=== PATIENT | male | born 1940 | race American Indian/Alaskan Native ===

== ENCOUNTER 2019-01-16 21:36 | Inpatient (IN) | payer MEDICARE ==
--- NOTE | 2019-01-16 21:59 | Emergency Department Report ---
Chief Complaint: Weakness Stated Complaint: DEMENTIA/LOWER BODY WEAKNESS Time Seen by Provider: 01/16/19 21:53 - HPI History of Present Illness: hx of dementia seems more AMS that began three days ago states he has bilateral LE weakness states he missed his chair and fell onto his buttocks today PMHx of glaucoma pt is currently taking lisinopril, hydralazine, and memantine repeat manual in triage BP 146/72 - Exam Vital Signs: Vital Signs 01/16/19 21:49 Temperature 98.1 F Pulse Rate 97 H Respiratory 18 Rate Blood Pressure 147/103 O2 Sat by Pulse 100 Oximetry MSE screening note: Focused history and physical exam performed. Due to findings the following was ordered: labs, UA
[2019-01-16 22:34] LABS: Basophils % (Auto) 0.7 % (0.0-1.8); Eosinophils # (Auto) 0.1 K/mm3 (0.0-0.4); Eosinophils % (Auto) 1.8 % (0.0-4.3); Hematocrit 43.4 % (35.5-45.6); Hemoglobin 14.5 gm/dl (11.8-15.2); Lymphocytes # (Auto) 0.8 K/mm3 (1.2-5.4); Lymphocytes % (Auto) 21.7 % (13.4-35.0); Mean Corpuscular HGB Conc 33 % (32-34); Mean Corpuscular Volume 89 fl (84-94); Monocytes # (Auto) 0.5 K/mm3 (0.0-0.8); Monocytes % (Auto) 12.6 % (0.0-7.3); Platelet Count 180 K/mm3 (140-440); Red Blood Count 4.88 M/mm3 (3.65-5.03); Red Cell Distribution Width 13.1 % (13.2-15.2)
[2019-01-16 22:44] LABS: INR 1.05 (0.87-1.13); Partial Thromboplastin Time 25.5 Sec. (24.2-36.6)
--- NOTE | 2019-01-16 22:50 | Emergency Department Report ---
- General Chief complaint: Weakness Stated complaint: DEMENTIA/LOWER BODY WEAKNESS Time Seen by Provider: 01/16/19 21:53 Source: family Mode of arrival: Ambulatory Limitations: No Limitations - History of Present Illness Initial comments: 78-year-old male with history of Alzheimer's dementia presents to ED with generalized weakness and altered mental status. states over the last week patient has been generally weak, even falling and missing the chair, landing on his buttocks, denies head injury. Also states the patient has had decreased appetite, has been conversing less, and has been slightly more agitated. states patient has not complained of anything. denies fever, vomiting, diarrhea. MD Complaint: generalized weakness -: week(s) (1) Location: LLE, RLE Severity: moderate Consistency: constant Improves with: none Worsens with: none Associated Symptoms: loss of appetite. denies: fever/chills, shortness of breath - Related Data Home Medications Medication Instructions Recorded Confirmed Last Taken Aspirin [Aspirin BABY CHEW TAB] 81 mg PO QDAY 09/01/13 01/17/19 10/17/15 Trospium Chloride [Trospium 20 mg PO QDAY 10/17/15 01/17/19 10/17/15 Chloride ER] Latanoprost [Xalatan] 1 drop OP HS 01/17/19 01/17/19 Unknown Previous Rx's Medication Instructions Recorded Last Taken Type AtorvaSTATin [Lipitor] 40 mg PO QHS #30 tablet 11/21/17 Unknown Rx Lisinopril [Zestril TAB] 10 mg PO QDAY #30 tablet 11/21/17 Unknown Rx Memantine HCl [Namenda Xr] 14 mg PO DAILY #30 cap.spr.24 11/21/17 Unknown Rx hydrALAZINE [Apresoline TAB] 25 mg PO Q8HR #90 tablet 11/21/17 Unknown Rx Allergies Allergy/AdvReac Type Severity Reaction Status Date / Time No Known Allergies Allergy Unverified 09/01/13 11:07 ED Review of Systems ROS: Stated complaint: DEMENTIA/LOWER BODY WEAKNESS Other details as noted in HPI Comment: Unobtainable due to pts medical conditions (hx of dementia) Constitutional: denies: fever Gastrointestinal: denies: vomiting, diarrhea ED Past Medical Hx - Past Medical History Previous Medical History?: Yes Hx Hypertension: Yes Hx Heart Attack/AMI: No Hx Congestive Heart Failure: No Hx Diabetes: Yes Hx Seizures: No Hx Asthma: No Hx COPD: No Hx Tuberculosis: No Hx Dementia: Yes Hx HIV: No Additional medical history: heart murmur, memory loss/difficulty - Surgical History Past Surgical History?: Yes Additional Surgical History: hand surgery, enlarged prostate with urinary incontinence - Social History Smoking Status: Never Smoker Substance Use Type: None - Medications Home Medications: Home Medications Medication Instructions Recorded Confirmed Last Taken Type Aspirin [Aspirin BABY CHEW TAB] 81 mg PO QDAY 09/01/13 01/17/19 10/17/15 History Trospium Chloride [Trospium 20 mg PO QDAY 10/17/15 01/17/19 10/17/15 History Chloride ER] AtorvaSTATin [Lipitor] 40 mg PO QHS #30 tablet 11/21/17 01/17/19 Unknown Rx Lisinopril [Zestril TAB] 10 mg PO QDAY #30 tablet 11/21/17 01/17/19 Unknown Rx Memantine HCl [Namenda Xr] 14 mg PO DAILY #30 cap.spr.24 11/21/17 01/17/19 Unknown Rx hydrALAZINE [Apresoline TAB] 25 mg PO Q8HR #90 tablet 11/21/17 01/17/19 Unknown Rx Latanoprost [Xalatan] 1 drop OP HS 01/17/19 01/17/19 Unknown History ED Physical Exam - General Limitations: No Limitations General appearance: alert, in no apparent distress - Head Head exam: Present: atraumatic, normocephalic - Eye Eye exam: Present: normal appearance, PERRL, EOMI - ENT ENT exam: Present: mucous membranes moist - Neck Neck exam: Present: normal inspection - Respiratory Respiratory exam: Present: normal lung sounds bilaterally. Absent: respiratory distress - Cardiovascular Cardiovascular Exam: Present: regular rate, normal rhythm - GI/Abdominal GI/Abdominal exam: Present: soft. Absent: distended, tenderness - Extremities Exam Extremities exam: Present: normal inspection - Neurological Exam Neurological exam: Present: alert, altered (pt does not answer any questions, only smiles politely and says "Huh?"), CN II-XII intact, abnormal gait (unsteady). Absent: motor sensory deficit - Psychiatric Psychiatric exam: Present: flat affect - Skin Skin exam: Present: warm, dry, intact, normal color ED Course Vital Signs 01/16/19 01/16/19 01/16/19 21:49 22:03 22:42 Temperature 98.1 F Pulse Rate 97 H 93 H Respiratory 18 26 H Rate Blood Pressure 147/103 Blood Pressure 146/76 [Right] O2 Sat by Pulse 100 Oximetry 01/16/19 01/16/19 01/16/19 22:45 23:01 23:15 Temperature Pulse Rate 83 87 85 Respiratory 17 17 17 Rate Blood Pressure 165/113 165/113 161/107 Blood Pressure [Right] O2 Sat by Pulse 100 99 Oximetry 01/16/19 01/16/19 01/16/19 23:31 23:35 23:45 Temperature Pulse Rate 78 77 Respiratory 10 L 18 19 Rate Blood Pressure 135/84 135/84 Blood Pressure [Right] O2 Sat by Pulse Oximetry 01/17/19 01/17/19 01/17/19 00:00 00:45 01:00 Temperature Pulse Rate 74 70 68 Respiratory 23 14 Rate Blood Pressure 126/74 129/69 136/80 Blood Pressure [Right] O2 Sat by Pulse 98 Oximetry 01/17/19 01/17/19 01/17/19 01:30 02:00 02:45 Temperature Pulse Rate 62 59 L 60 Respiratory 11 L 18 11 L Rate Blood Pressure 145/84 155/81 157/88 Blood Pressure [Right] O2 Sat by Pulse 99 93 88 Oximetry 01/17/19 01/17/19 01/17/19 03:01 03:45 04:01 Temperature Pulse Rate 59 L 65 61 Respiratory 11 L 13 9 L Rate Blood Pressure 151/85 152/86 159/87 Blood Pressure [Right] O2 Sat by Pulse 96 100 99 Oximetry 01/17/19 04:16 Temperature 97.9 F Pulse Rate 61 Respiratory 18 Rate Blood Pressure Blood Pressure 145/91 [Right] O2 Sat by Pulse 98 Oximetry - Consultations Consultation #1: 01/17/19 01:48 Spoke mickey/ [place] on-call physician. States keep at [facility] and admit for MRI. ED Medical Decision Making - Lab Data Result diagrams: 01/16/19 22:21 01/16/19 22:21 - EKG Data -: EKG Interpreted by [facility] EKG shows normal: sinus rhythm, axis, intervals, QRS complexes, ST-T waves Rate: normal - EKG Data Interpretation: no acute changes - Radiology Data Radiology results: report reviewed, image reviewed - Medical Decision Making 78-year-old male with history of dementia presents to the ED with unsteady gait, fall at home, decreased by mouth intake, and altered mental status. reports patient has been less conversational and more agitated/aggressive with her over the last week which is definitely a change in patient's baseline. Workup was unremarkable. Pt given 1 mg ativan in order to obtain CT Head, due to pt moving around too much. CT Head negative for any acute changes. Spoke with [place] on-call physician, Dr Yu, suggests patient be admitted here to get an MRI in the morning. Spoke w/ Dr Bruner, hospitalist, for admission. - Differential Diagnosis UTI, electrolyte abnormality, CVA, pneumonia, progression of dementia Critical care attestation.: If time is entered above; I have spent that time in minutes in the direct care of this critically ill patient, excluding procedure time. ED Disposition Clinical Impression: Unsteady gait, Altered mental status Disposition: -09 OP ADMIT IP TO THIS HOSP Is pt being admited?: Yes Condition: Stable Time of Disposition: 01:50
[2019-01-16 22:53] LABS: Alanine Aminotransferase 15 units/L (7-56); Albumin 3.6 g/dL (3.9-5); BUN/Creatinine Ratio 20; Blood Urea Nitrogen 18 mg/dL (9-20); Calcium 9.6 mg/dL (8.4-10.2); Hemolysis Index 3
[2019-01-16] MEDS ORDERED: ATIVAN IV ONE (23:14)
--- NOTE | 2019-01-16 23:40 | XRay Report ---
PROCEDURE: XR CHEST 1V AP TECHNIQUE: Single portable chest radiograph. HISTORY: Altered mental status. COMPARISONS: Radiographs 17 November 2017. FINDINGS: No focal consolidation, pleural effusion or pneumothorax. Cardiac silhouette not enlarged. Tortuosity and atherosclerotic vascular calcifications within the thoracic aorta. No acute osseous abnormality. IMPRESSION: No acute cardiopulmonary disease. This document is electronically signed by Johnny Driscoll DO., January 16 2019 11:38:06 PM ET
[2019-01-16 23:51] LABS: Bilirubin,Urine NEG (Negative); Blood,Urine NEG (Negative); Color,Urine Amber (Yellow); Mucus,Urine FEW /HPF; Protein,Urine <15 mg/dL mg/dL (Negative); WBC,Urine < 1.0 /HPF (0.0-6.0)
--- NOTE | 2019-01-17 01:08 | Cat Scan Report ---
PROCEDURE: CT HEAD/BRAIN WO CON TECHNIQUE: Routine axial imaging was obtained of the brain without IV contrast. HISTORY: AMS COMPARISONS: 11/17/2017 FINDINGS: There is age-related atrophy. There is diminished attenuation of the paravertebral white matter romel tible with chronic ischemic white matter disease changes. There is a remote lacunar infarct in left t halamus. There is no evidence of acute stroke or hemorrhage. The visualized sinuses are clear. The ca lvarium appears intact. IMPRESSION: Generalized atrophy with chronic ischemic white matter disease changes. No acute stroke or hemorrhage . Remote lacunar infarct in the left thalamus.. This document is electronically signed by Job Loving MD., Jan 17 2019 01:06:34 AM ET
[2019-01-17] MEDS ORDERED: D50W (25GM) Syringe IV PRN (02:28)
[2019-01-17] MEDS ORDERED: ZOFRAN IV PRN (02:30)
[2019-01-17] MEDS ORDERED: TYLENOL PO PRN (02:30)
[2019-01-17] MEDS ORDERED: NACL 0.9% 1000 ML 1,000 ML IV SCH (03:00)
--- NOTE | 2019-01-17 05:28 | History and Physical Report ---
CHIEF COMPLAINT: Weakness. Other complaint includes change in mental status. HISTORY OF PRESENT ILLNESS: The patient is an 78-year-old male with Alzheimer's dementia presenting with generalized weakness and change in mental status from the patient's baseline. The patient was noted by family to be unsteady in his gait and also has change in mental status where he is withdrawn and unable to operate at his baseline level and stopped talking much. The patient also was noted not to be eating or drinking much. There was no history of fever or chills. No history of nausea or vomiting. There was also no history of chest pain or shortness of breath. The patient was also noted by to have fallen down, but there was no reported history of head injury. PAST MEDICAL HISTORY: Pertinent for hypertension. Also, the patient has past history of diabetes mellitus, dementia, heart murmur, and Alzheimer's disease. PAST SURGICAL HISTORY: Pertinent for hand surgery. FAMILY HISTORY: Noncontributory. SOCIAL HISTORY: The patient does not smoke, does not drink alcohol, and does not use illicit drugs. MEDICATIONS: The patient is on aspirin 81 mg daily, trospium chloride 20 mg by mouth daily, atorvastatin 40 mg by mouth daily, lisinopril 10 mg by mouth daily, Namenda or memantine 14 mg by mouth daily, hydralazine 25 mg by mouth every 8 hours. ALLERGIES: There are no known drug allergies. REVIEW OF SYSTEMS: CONSTITUTIONAL: There is no fever, no chills, no diaphoresis. HEENT: There is no headache or sore throat. CARDIOVASCULAR SYSTEM: There is no chest pain or orthopnea. RESPIRATORY SYSTEM: There is no shortness of breath or cough. GASTROINTESTINAL SYSTEM: There is no nausea, no vomiting, no abdominal pain, diarrhea or constipation. NEUROLOGICAL SYSTEM: Change in mental status noted, unsteady gait noted, generalized weakness noted, no dizziness. MUSCULOSKELETAL SYSTEM: There is no joint pain or swelling. DERMATOLOGICAL SYSTEM: There is no skin rash or itching. GENITOURINARY SYSTEM: There is no dysuria, hematuria, or flank pain. Rest of system review is normal. PHYSICAL EXAMINATION: GENERAL: At the time of exam, the patient was found to be lethargic, but arousable and not in acute distress. VITAL SIGNS: At initial time of presentation showed temperature of 98.1 degree, pulse of 97, respirations 18, blood pressure 147/103, O2 sat of 100% on room air. HEENT: Showed pupils to be equal, round, and reactive to light and accommodating. Extraocular motions are intact. NECK: Supple with no JVD or carotid bruit. CARDIOVASCULAR SYSTEM: Showed normal first and second heart sounds with no gallops or murmurs. RESPIRATORY SYSTEM: Showed good air entry on both sides of the lungs with no abnormal breath sounds. GASTROINTESTINAL SYSTEM: Showed abdomen to be full, soft, nontender with no organomegaly or rigidity. NEUROLOGIC: Shows no focal deficit. MUSCULOSKELETAL SYSTEM: Showed no joint swelling or tenderness. DERMATOLOGICAL SYSTEM: Showed no skin rash or itching. GENITOURINARY SYSTEM: Showed no costovertebral angle tenderness. PERTINENT LABORATORY AND IMAGING STUDIES: The patient had the following imaging studies done: CT of the head without contrast shows generalized atrophy with chronic ischemic white matter disease changes with no acute stroke or hemorrhage noted. There is finding of remote lacunar infarct in the left thalamus. The patient also had chest x-ray done and chest x-ray shows no acute cardiopulmonary disease. Lab results: The patient has CBC done with a low white count of 3.8, normal hemoglobin, normal hematocrit with CBC differential showing elevated monocyte count of 12.6%. The patient's coagulation studies were unremarkable. The patient's chemistry was unremarkable except for slight decrease in albumin level of 3.6. The patient's urinalysis was unremarkable. DIAGNOSES: 1. Unsteady gait. 2. Altered mental status. 3. Generalized weakness. PLAN OF CARE: 1. The patient will be admitted to the Adult Care Unit as inpatient. 2. The patient will have MRI of the brain without contrast done this morning. 3. The patient will have neurology consult with Dr. Dann Mckeon because of unsteady gait. He will also have physical therapy consult to evaluate and treat. 4. The patient will be on Accu-Chek before meals and at bedtime, followed by low-dose sliding scale using regular insulin coverage. 5. The patient will be on consistent carbohydrate, low sodium diet. 6. The patient will be on p.r.n. medications like Tylenol 650 mg by mouth every 4 hours for fever and headache and Zofran 4 mg IV every 8 hours for nausea and vomiting. 7. The patient will be on IV normal saline at 75 mL an hour. 8. The patient will be placed on his home medication as shown in the medication reconciliation section and will be on oxygen by nasal cannula at 2 liters per minute. [facility]# [id number] OCN/DAVID MTDD
[2019-01-17] MEDS: APRESOLINE PO SCH ×3 (06:19→21:17)
[2019-01-17] MEDS: HumuLIN R SUB-Q SCH ×3 (08:07→16:38)
[2019-01-17] MEDS ORDERED: MEMANTINE HCL 14 MG PO SCH (10:00)
[2019-01-17] MEDS ORDERED: TROSPIUM CHLORIDE 20 MG PO SCH (10:00)
[2019-01-17] MEDS: NAMENDA PO SCH ×2 (11:57→22:34)
[2019-01-17] MEDS: ZESTRIL PO SCH (11:57)
[2019-01-17] MEDS: BABY ASPIRIN PO SCH (11:57)
[2019-01-17] MEDS ORDERED: PNEUMOVAX 23 IM ONE (12:00)
--- NOTE | 2019-01-17 15:26 | Progress Note ---
Assessment and Plan Assessment and plan: Patient is a 78 yo woman with a history of Dementia, prior CVA, hypertension, glaucoma and dyslipidemia who presented to [facility] ED with AMS and unsteady gait. Acute Encephalopathy Unsteady gait: consult PT for ambulatory dysfunction Hypertension: low salt diet Restraints renewed MRI brain ordered and pending History Interval history: Patient was seen and examined. Follow-up on current diagnosis of AMS. Overnight uneventful. Imaging, nursing note, chart, labs and old chart reviewed. Hospitalist Physical - Physical exam Narrative exam: Gen: WDWN, NAD, Awake, Alert, Orientated knows first name only HEENT: NCAT, EOMI, PERRL, OP Clear Neck: supple, no adenopathy, no thyromegaly, no JVD CVS/Heart: regular bradycardia, normal S1S2, pulses present bilaterally Chest/Lungs: CTA B, Symmetrical chest expansion, good air entry bilaterally GI/Abdomen: soft, NTND, good bowel sounds, no guarding or rebound /Bladder: no suprapubic tenderness, no CVA or paraspinal tenderness Extermity/Skin: no c/c/e, no obvious rash MSK: FROM x 4 Neuro: CN 2-12 grossly intact, no new focal deficits Psych: confused - Constitutional Vitals: Temp Pulse Resp BP Pulse Ox 98.3 F 58 L 16 121/70 98 01/17/19 12:18 01/17/19 15:04 01/17/19 12:18 01/17/19 13:17 01/17/19 13:15 Results - Labs CBC & Chem 7: 01/16/19 22:21 01/16/19 22:21 Labs: Laboratory Last Values WBC 3.8 K/mm3 (4.5-11.0) L 01/16/19 22:21 RBC 4.88 M/mm3 (3.65-5.03) 01/16/19 22:21 Hgb 14.5 gm/dl (11.8-15.2) 01/16/19 22:21 Hct 43.4 % (35.5-45.6) 01/16/19 22:21 MCV 89 fl (84-94) 01/16/19 22:21 MCH 30 pg (28-32) 01/16/19 22:21 MCHC 33 % (32-34) 01/16/19 22:21 RDW 13.1 % (13.2-15.2) L 01/16/19 22:21 Plt Count 180 K/mm3 (140-440) 01/16/19 22:21 Lymph % (Auto) 21.7 % (13.4-35.0) 01/16/19 22:21 Amador % (Auto) 12.6 % (0.0-7.3) H 01/16/19 22:21 Eos % (Auto) 1.8 % (0.0-4.3) 01/16/19 22:21 Baso % (Auto) 0.7 % (0.0-1.8) 01/16/19 22:21 Lymph # 0.8 K/mm3 (1.2-5.4) L 01/16/19 22:21 Amador # 0.5 K/mm3 (0.0-0.8) 01/16/19 22:21 Eos # 0.1 K/mm3 (0.0-0.4) 01/16/19 22:21 Baso # 0.0 K/mm3 (0.0-0.1) 01/16/19 22:21 Seg Neutrophils % 63.2 % (40.0-70.0) 01/16/19 22:21 Seg Neutrophils # 2.4 K/mm3 (1.8-7.7) 01/16/19 22:21 PT 14.3 Sec. (12.2-14.9) 01/16/19 22:21 INR 1.05 (0.87-1.13) 01/16/19 22:21 APTT 25.5 Sec. (24.2-36.6) 01/16/19 22:21 Sodium 139 mmol/L (137-145) 01/16/19 22:21 Potassium 4.4 mmol/L (3.6-5.0) 01/16/19 22:21 Chloride 102.1 mmol/L (98-107) 01/16/19 22:21 Carbon Dioxide 26 mmol/L (22-30) 01/16/19 22:21 Anion Gap 15 mmol/L 01/16/19 22:21 BUN 18 mg/dL (9-20) 01/16/19 22:21 Creatinine 0.9 mg/dL (0.8-1.5) 01/16/19 22:21 Estimated GFR > 60 ml/min 01/16/19 22:21 BUN/Creatinine Ratio 20 % 01/16/19 22:21 Glucose 128 mg/dL (75-100) H 01/16/19 22:21 POC Glucose 90 (70-105) 01/17/19 12:06 Calcium 9.6 mg/dL (8.4-10.2) 01/16/19 22:21 Phosphorus 2.50 mg/dL (2.5-4.5) 01/16/19 22:21 Magnesium 2.10 mg/dL (1.7-2.3) 01/16/19 22:21 Total Bilirubin 0.30 mg/dL (0.1-1.2) 01/16/19 22:21 AST 25 units/L (5-40) 01/16/19 22:21 ALT 15 units/L (7-56) 01/16/19 22:21 Alkaline Phosphatase 57 units/L (35-129) 01/16/19 22:21 Ammonia 40.0 umol/L (25-60) 01/16/19 22:21 Troponin T 0.022 ng/mL (0.00-0.029) 01/16/19 22:21 Total Protein 7.0 g/dL (6.3-8.2) 01/16/19 22:21 Albumin 3.6 g/dL (3.9-5) L 01/16/19 22:21 Albumin/Globulin Ratio 1.1 % 01/16/19 22:21 Urine Color Lila (Yellow) 01/16/19 23:00 Urine Turbidity Clear (Clear) 01/16/19 23:00 Urine pH 5.0 (5.0-7.0) 01/16/19 23:00 Ur Specific Fletcher 1.030 (1.003-1.030) 01/16/19 23:00 Urine Protein <15 mg/dl mg/dL (Negative) 01/16/19 23:00 Urine Glucose (UA) Neg mg/dL (Negative) 01/16/19 23:00 Urine Ketones Neg mg/dL (Negative) 01/16/19 23:00 Urine Blood Neg (Negative) 01/16/19 23:00 Urine Nitrite Neg (Negative) 01/16/19 23:00 Urine Bilirubin Neg (Negative) 01/16/19 23:00 Urine Urobilinogen 4.0 mg/dL (<2.0) 01/16/19 23:00 Ur Leukocyte Esterase Neg (Negative) 01/16/19 23:00 Urine WBC (Auto) < 1.0 /HPF (0.0-6.0) 01/16/19 23:00 Urine RBC (Auto) 1.0 /HPF (0.0-6.0) 01/16/19 23:00 U Epithel Cells (Auto) < 1.0 /HPF (0-13.0) 01/16/19 23:00 Urine Mucus Few /HPF 01/16/19 23:00 Active Medications - Current Medications Current Medications: Generic Name Dose Route Start Last Admin Trade Name Freq PRN Reason Stop Dose Admin Acetaminophen 650 mg 01/17/19 02:30 Tylenol PO Q4H PRN Pain, Mild (1-3) Aspirin 81 mg 01/17/19 10:00 01/17/19 11:57 Baby Aspirin PO 81 mg QDAY FABRICIO Administration Atorvastatin Calcium 40 mg 01/17/19 22:00 Lipitor PO QHS FABRICIO Dextrose 50 ml 01/17/19 02:28 D50w (25gm) Syringe IV PRN PRN Hypoglycemia Hydralazine HCl 25 mg 01/17/19 06:00 01/17/19 15:04 Apresoline PO Not Given Q8HR FABRICIO Sodium Chloride 1,000 mls @ 75 mls/hr 01/17/19 03:00 01/17/19 06:12 Nacl 0.9% 1000 Ml IV 75 mls/hr DIRECT FABRICIO Administration Insulin Human Regular 0 units 01/17/19 07:30 01/17/19 12:07 Humulin R SUB-Q Not Given AC [facility] Protocol Insulin Human Regular 0 units 01/17/19 22:00 Humulin R SUB-Q QHS [facility] Protocol Lisinopril 10 mg 01/17/19 10:00 01/17/19 11:57 Zestril PO 10 mg QDAY FABRICIO Administration Memantine 5 mg 01/17/19 10:00 01/17/19 11:57 Namenda PO 5 mg Q12HR FABRICIO Administration Miscellaneous Medication 20 mg 01/17/19 10:00 Trospium Chloride [Trospium Chloride Er] PO QDAY FABRICIO Ondansetron HCl 4 mg 01/17/19 02:30 Zofran IV Q8H PRN Nausea And Vomiting
--- NOTE | 2019-01-17 18:21 | Consultation ---
History of Present Illness Consult date: 01/17/19 Chief complaint: AMS History of present illness: this is aan 78 YO M who presented to the ED with AMs. Pt has dementia at baseline, unclear what specific changes he had. On my arrival restless and trying to get out of bed. Doesn't follow any commands, very little speech. No fmaily at bedside. Past History Past Medical History: diabetes, hypertension, other (heart murmur, dementia) Past Surgical History: Other (hand surgery) Social history: lives with family (unable to obtain) Medications and Allergies Allergies Allergy/AdvReac Type Severity Reaction Status Date / Time No Known Allergies Allergy Unverified 09/01/13 11:07 Home Medications Medication Instructions Recorded Confirmed Last Taken Type Aspirin [Aspirin BABY CHEW TAB] 81 mg PO QDAY 09/01/13 01/17/19 10/17/15 History Trospium Chloride [Trospium 20 mg PO QDAY 10/17/15 01/17/19 10/17/15 History Chloride ER] AtorvaSTATin [Lipitor] 40 mg PO QHS #30 tablet 11/21/17 01/17/19 Unknown Rx Lisinopril [Zestril TAB] 10 mg PO QDAY #30 tablet 11/21/17 01/17/19 Unknown Rx Memantine HCl [Namenda Xr] 14 mg PO DAILY #30 cap.spr.24 11/21/17 01/17/19 Unknown Rx hydrALAZINE [Apresoline TAB] 25 mg PO Q8HR #90 tablet 11/21/17 01/17/19 Unknown Rx Latanoprost [Xalatan] 1 drop OP HS 01/17/19 01/17/19 Unknown History Active Meds: Active Medications Acetaminophen (Tylenol) 650 mg PO Q4H PRN PRN Reason: Pain, Mild (1-3) Aspirin (Baby Aspirin) 81 mg PO QDAY [facility] Last Admin: 01/17/19 11:57 Dose: 81 mg Documented by: Atorvastatin Calcium (Lipitor) 40 mg PO QHS [facility] Dextrose (D50w (25gm) Syringe) 50 ml IV PRN PRN PRN Reason: Hypoglycemia Hydralazine HCl (Apresoline) 25 mg PO Q8HR [facility] Last Admin: 01/17/19 15:04 Dose: Not Given Documented by: Insulin Human Regular (Humulin R) 0 units SUB-Q [facility]; Protocol Last Admin: 01/17/19 16:38 Dose: Not Given Documented by: Insulin Human Regular (Humulin R) 0 units SUB-Q QHS [facility]; Protocol Lisinopril (Zestril) 10 mg PO QDAY [facility] Last Admin: 01/17/19 11:57 Dose: 10 mg Documented by: Memantine (Namenda) 5 mg PO Q12HR [facility] Last Admin: 01/17/19 11:57 Dose: 5 mg Documented by: Miscellaneous Medication (Trospium Chloride [Trospium Chloride Er]) 20 mg PO QDAY [facility] Ondansetron HCl (Zofran) 4 mg IV Q8H PRN PRN Reason: Nausea And Vomiting Review of Systems ROS unobtainable: due to mental status Physical Examination - Vital Signs Vital Signs: Vital Signs Temp Pulse Resp BP Pulse Ox 98.1 F 97 H 18 147/103 100 01/16/19 21:49 01/16/19 21:49 01/16/19 21:49 01/16/19 21:49 01/16/19 21:49 - Constitutional General appearance: comfortable - EENT EENT: Present: PERRL, mucous membranes moist - Respiratory Respiratory: Present: lungs clear - Cardiovascular Cardiovascular: Present: regular rate - Gastrointestinal Gastrointestinal: Present: normoactive bowel sounds - Integumentary Integumentary: Present: normal - Neurologic Cranial nerve examination: PERRL, EOMI, face symmetric, tongue midline Detailed motor examination: grossly full strength in Reflexes: 1+: ankle, bicep, knee, tricep Results - Laboratory Findings CBC and BMP: 01/16/19 22:21 01/16/19 22:21 Abnormal Lab Findings: Abnormal Labs 01/16/19 01/16/19 01/16/19 21:48 22:21 22:21 WBC 3.8 L RDW 13.1 L B[place] % (Auto) 12.6 H Lymph # 0.8 L Glucose 128 H POC Glucose 120 H Albumin 3.6 L - Diagnostic Findings Additional findings: CT head atrophy, old left thalamic infarct, no acute changes UA ok Assessment and Plan This is an 78 YO M with acute encephalopathy, etiology unclear. Recommend: EEG MRI Brain if no contraindication TSH, B12 If nothing found to cause an acute change this could be progression of his known disease process. continue care for all medical issues as you are doing. Call with questions.
[2019-01-17] MEDS ORDERED: HumuLIN R SUB-Q SCH (22:00)
[2019-01-18] MEDS: APRESOLINE PO SCH ×3 (05:42→13:19)
[2019-01-18] MEDS ORDERED: APRESOLINE IV PRN (06:06)
--- NOTE | 2019-01-18 08:45 | Progress Note ---
Assessment and Plan Assessment and plan: Patient is a 78 yo woman with a history of Dementia, prior CVA, hypertension, glaucoma and dyslipidemia who presented to [facility] ED with AMS and unsteady gait. Acute Encephalopathy Unsteady gait: consult PT for ambulatory dysfunction Hypertension: low salt diet Restraints renewed spoke with [place] physician, Dr. Sahu MRI brain and EEG ordered and pending, RN called me for sedative for the MRI. History Interval history: Patient was seen and examined. Follow-up on current diagnosis of AMS. Overnight uneventful. Imaging, nursing note, chart, labs and old chart reviewed. Hospitalist Physical - Physical exam Narrative exam: Gen: WDWN, NAD, Awake, Alert, Orientated knows first name only HEENT: NCAT, EOMI, PERRL, OP Clear Neck: supple, no adenopathy, no thyromegaly, no JVD CVS/Heart: regular bradycardia, normal S1S2, pulses present bilaterally Chest/Lungs: CTA B, Symmetrical chest expansion, good air entry bilaterally GI/Abdomen: soft, NTND, good bowel sounds, no guarding or rebound /Bladder: no suprapubic tenderness, no CVA or paraspinal tenderness Extermity/Skin: no c/c/e, no obvious rash MSK: FROM x 4 Neuro: CN 2-12 grossly intact, no new focal deficits Psych: confused - Constitutional Vitals: Temp Pulse Resp BP Pulse Ox 98.7 F 69 14 144/78 100 01/18/19 07:42 01/18/19 07:42 01/18/19 07:42 01/18/19 07:42 01/18/19 07:42 Results - Labs CBC & Chem 7: 01/16/19 22:21 01/16/19 22:21 Labs: Laboratory Last Values WBC 3.8 K/mm3 (4.5-11.0) L 01/16/19 22:21 RBC 4.88 M/mm3 (3.65-5.03) 01/16/19 22:21 Hgb 14.5 gm/dl (11.8-15.2) 01/16/19 22:21 Hct 43.4 % (35.5-45.6) 01/16/19 22:21 MCV 89 fl (84-94) 01/16/19 22:21 MCH 30 pg (28-32) 01/16/19 22:21 MCHC 33 % (32-34) 01/16/19 22:21 RDW 13.1 % (13.2-15.2) L 01/16/19 22:21 Plt Count 180 K/mm3 (140-440) 01/16/19 22:21 Lymph % (Auto) 21.7 % (13.4-35.0) 01/16/19 22:21 [place] % (Auto) 12.6 % (0.0-7.3) H 01/16/19 22:21 Eos % (Auto) 1.8 % (0.0-4.3) 01/16/19 22:21 Baso % (Auto) 0.7 % (0.0-1.8) 01/16/19 22:21 Lymph # 0.8 K/mm3 (1.2-5.4) L 01/16/19 22:21 [place] # 0.5 K/mm3 (0.0-0.8) 01/16/19 22:21 Eos # 0.1 K/mm3 (0.0-0.4) 01/16/19 22:21 Baso # 0.0 K/mm3 (0.0-0.1) 01/16/19 22:21 Seg Neutrophils % 63.2 % (40.0-70.0) 01/16/19 22:21 Seg Neutrophils # 2.4 K/mm3 (1.8-7.7) 01/16/19 22:21 PT 14.3 Sec. (12.2-14.9) 01/16/19 22:21 INR 1.05 (0.87-1.13) 01/16/19 22:21 APTT 25.5 Sec. (24.2-36.6) 01/16/19 22:21 Sodium 139 mmol/L (137-145) 01/16/19 22:21 Potassium 4.4 mmol/L (3.6-5.0) 01/16/19 22:21 Chloride 102.1 mmol/L (98-107) 01/16/19 22:21 Carbon Dioxide 26 mmol/L (22-30) 01/16/19 22:21 Anion Gap 15 mmol/L 01/16/19 22:21 BUN 18 mg/dL (9-20) 01/16/19 22:21 Creatinine 0.9 mg/dL (0.8-1.5) 01/16/19 22:21 Estimated GFR > 60 ml/min 01/16/19 22:21 BUN/Creatinine Ratio 20 % 01/16/19 22:21 Glucose 128 mg/dL (75-100) H 01/16/19 22:21 POC Glucose 77 (70-105) 01/18/19 07:49 Calcium 9.6 mg/dL (8.4-10.2) 01/16/19 22:21 Phosphorus 2.50 mg/dL (2.5-4.5) 01/16/19 22:21 Magnesium 2.10 mg/dL (1.7-2.3) 01/16/19 22:21 Total Bilirubin 0.30 mg/dL (0.1-1.2) 01/16/19 22:21 AST 25 units/L (5-40) 01/16/19 22:21 ALT 15 units/L (7-56) 01/16/19 22:21 Alkaline Phosphatase 57 units/L (35-129) 01/16/19 22:21 Ammonia 40.0 umol/L (25-60) 01/16/19 22:21 Troponin T 0.022 ng/mL (0.00-0.029) 01/16/19 22:21 Total Protein 7.0 g/dL (6.3-8.2) 01/16/19 22:21 Albumin 3.6 g/dL (3.9-5) L 01/16/19 22:21 Albumin/Globulin Ratio 1.1 % 01/16/19 22:21 Vitamin B12 599.9 pg/mL (211-911) 01/17/19 19:08 TSH 1.840 mlU/mL (0.270-4.200) 01/17/19 19:08 Urine Color Lila (Yellow) 01/16/19 23:00 Urine Turbidity Clear (Clear) 01/16/19 23:00 Urine pH 5.0 (5.0-7.0) 01/16/19 23:00 Ur Specific Angela 1.030 (1.003-1.030) 01/16/19 23:00 Urine Protein <15 mg/dl mg/dL (Negative) 01/16/19 23:00 Urine Glucose (UA) Neg mg/dL (Negative) 01/16/19 23:00 Urine Ketones Neg mg/dL (Negative) 01/16/19 23:00 Urine Blood Neg (Negative) 01/16/19 23:00 Urine Nitrite Neg (Negative) 01/16/19 23:00 Urine Bilirubin Neg (Negative) 01/16/19 23:00 Urine Urobilinogen 4.0 mg/dL (<2.0) 01/16/19 23:00 Ur Leukocyte Esterase Neg (Negative) 01/16/19 23:00 Urine WBC (Auto) < 1.0 /HPF (0.0-6.0) 01/16/19 23:00 Urine RBC (Auto) 1.0 /HPF (0.0-6.0) 01/16/19 23:00 U Epithel Cells (Auto) < 1.0 /HPF (0-13.0) 01/16/19 23:00 Urine Mucus Few /HPF 01/16/19 23:00 Active Medications - Current Medications Current Medications: Generic Name Dose Route Start Last Admin Trade Name Freq PRN Reason Stop Dose Admin Acetaminophen 650 mg 01/17/19 02:30 Tylenol PO Q4H PRN Pain, Mild (1-3) Aspirin 81 mg 01/17/19 10:00 01/17/19 11:57 Baby Aspirin PO 81 mg QDAY FABRICIO Administration Atorvastatin Calcium 40 mg 01/17/19 22:00 01/17/19 21:17 Lipitor PO 40 mg QHS FABRICIO Administration Dextrose 50 ml 01/17/19 02:28 D50w (25gm) Syringe IV PRN PRN Hypoglycemia Hydralazine HCl 25 mg 01/17/19 06:00 01/18/19 06:13 Apresoline PO Not Given Q8HR FABRICIO Hydralazine HCl 10 mg 01/18/19 06:06 01/18/19 06:14 Apresoline IV 10 mg Q4HR PRN Administration Hypertension Insulin Human Regular 0 units 01/17/19 07:30 01/17/19 16:38 Humulin R SUB-Q Not Given AC [facility] Protocol Insulin Human Regular 0 units 01/17/19 22:00 01/17/19 21:39 [facility] R [facility]Q [facility] Lisinopril 10 mg 01/17/19 10:00 01/17/19 11:57 Zestril PO 10 mg QDAY FABRICIO Administration Memantine 5 mg 01/17/19 10:00 01/17/19 22:34 Namenda PO 5 mg Q12HR FABRICIO Administration Miscellaneous Medication 20 mg 01/17/19 10:00 Trospium Chloride [Trospium Chloride Er] PO QDAY FABRICIO Ondansetron HCl 4 mg 01/17/19 02:30 Zofran IV Q8H PRN Nausea And Vomiting
[2019-01-18] MEDS: BABY ASPIRIN PO SCH (09:43)
[2019-01-18] MEDS: ZESTRIL PO SCH (09:43)
[2019-01-18] MEDS: HumuLIN R SUB-Q SCH ×2 (09:44→13:20)
[2019-01-18] MEDS: NAMENDA PO SCH (11:11)
[2019-01-18] MEDS ORDERED: ATIVAN IV ONE (11:56)
--- NOTE | 2019-01-18 13:52 | Magnetic Resonance Report ---
MRI scan of brain: History: Unsteady gait. Technique: Multiplanar, multisequence images were obtained without contrast injection. Findings: Ventricles are normal in size and midline in location. Evidence of cortical atrophy and small vessel ischemic changes. Chronic lacunar infarct right and left basal ganglia. No evidence of acute ischemia, hemorrhage or mass. No extra axial fluid collection. Normal brainstem and cerebellum. Normal visualized sinuses and mastoid air cells. Impression: Cortical atrophy. Small vessel ischemic changes. Chronic lacunar infarct basal ganglia.
--- NOTE | 2019-01-18 14:45 | Discharge Summary ---
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 * MRI brain Impression: Cortical atrophy, small vessel ischemic changes, chronic lacunar infarct basal ganglia Acute Encephalopathy Unsteady gait: consult PT for ambulatory dysfunction Hypertension: low salt diet Dementia Restraints renewed spoke with [place] physician, Dr. Sahu EEG ordered and still pending, RN called me for sedative for the MRI. I gave 0.5 mg iv Ativan x 1 Disposition: I called dr. Sahu back at 2:30pm, she called me back and will accept him to [facility] under Dr. Weinstein Disposition: [id number]/[place]-[id number] ANOTHER TYPE HLTHCARE Time spent for discharge: 35 minutes Core Measure Documentation - Palliative Care Palliative Care/ Comfort Measures: Not Applicable - Core Measures Any of the following diagnoses?: none - VTE Discharge Requirements Deep Vein Thrombosis/Pulmonary Embolism Present on Admission: No Has pt received <5 days of overlap therapy or INR<2.0: No Anticoagulant overlap therapy prescribed at discharge: No Contraindication No Overlap Therapy order at DC: Not Indicated Exam - Physical Exam Narrative exam: Gen: WDWN, NAD, Awake, Alert, Orientated knows first name only HEENT: NCAT, EOMI, PERRL, OP Clear Neck: supple, no adenopathy, no thyromegaly, no JVD CVS/Heart: regular bradycardia, normal S1S2, pulses present bilaterally Chest/Lungs: CTA B, Symmetrical chest expansion, good air entry bilaterally GI/Abdomen: soft, NTND, good bowel sounds, no guarding or rebound /Bladder: no suprapubic tenderness, no CVA or paraspinal tenderness Extermity/Skin: no c/c/e, no obvious rash MSK: FROM x 4 Neuro: CN 2-12 grossly intact, no new focal deficits Psych: confused - Constitutional Vitals: Temp Pulse Resp BP Pulse Ox 98.7 F 66 14 144/78 90 01/18/19 07:42 01/18/19 13:00 01/18/19 07:42 01/18/19 09:43 01/18/19 10:00 Plan Activity: up only with assistance, other (no strenous activity) Diet: low salt Follow up with: PRIMARY CARE, [Primary Care Provider] - 3-5 Days
[2019-01-18 15:46] VITALS: BP 159/84
== END 2019-01-18 16:15 | disposition home or self-care (01) | DRG 72 ==
LOC: ED 21:36 → 4A 01-17 02:22 → 2B-ACE 01-17 15:15
PROVIDERS: ADMIT Internal Medicine; ATTEND Internal Medicine
DX: G93.40 Encephalopathy, unspecified (principal); H40.9 Unspecified glaucoma; G30.9 Alzheimer's disease, unspecified; F02.80 Dementia in other diseases classified elsewhere, unspecified severity, without behavioral disturbance, psychotic disturbance, mood disturbance, and anxiety; I10 Essential (primary) hypertension; E11.9 Type 2 diabetes mellitus without complications; E78.5 Hyperlipidemia, unspecified; G31.9 Degenerative disease of nervous system, unspecified; Z86.73 Personal history of transient ischemic attack (TIA), and cerebral infarction without residual deficits; Z79.82 Long term (current) use of aspirin
CPT/HCPCS: 36415; 70450; 70551; 71045; 80053; 81001; 82140; 82607; 82962; 83735; 84100; 84443; 84484; 85025; 85610; 85730; 90732; 93005; 93010; G0378; A9270-GY; J0360; J2060; J7030